=== PATIENT | female | born 1970 | race African-American/Black ===

== ENCOUNTER 2018-02-16 17:27 | Emergency (ER) | payer OTHER ==
[~2018-02-16 17:27] MED LIST: ALBU18HF2 IH
== END 2018-02-16 18:12 | disposition left against medical advice (07) ==
LOC: ER 17:35
DX: Z53.21 Procedure and treatment not carried out due to patient leaving prior to being seen by health care provider (principal)

== ENCOUNTER 2018-02-16 18:57 | Emergency (ER) | payer OTHER ==
[~2018-02-16] VITALS: Ht 167.6 cm; Wt 56.7 kg
[2018-02-16 19:24] VITALS: BP 139/78
== END 2018-02-16 20:15 | disposition home or self-care (01) ==
LOC: ER 19:03
DX: R21 Rash and other nonspecific skin eruption (principal); J45.909 Unspecified asthma, uncomplicated
CPT/HCPCS: 99283; A4606; Z7610

== ENCOUNTER 2018-10-07 21:42 | Emergency (ER) | payer OTHER ==
[~2018-10-07] VITALS: Ht 170.2 cm; Wt 59.0 kg
[2018-10-07 22:15] VITALS: BP 164/88
== END 2018-10-07 22:53 | disposition home or self-care (01) ==
LOC: ER 21:49
DX: J45.909 Unspecified asthma, uncomplicated (principal); I10 Essential (primary) hypertension; F17.200 Nicotine dependence, unspecified, uncomplicated; Z59.0 Homelessness
CPT/HCPCS: 99283; A4606

== ENCOUNTER 2018-12-19 22:18 | Emergency (ER) | payer OTHER ==
[~2018-12-19] VITALS: Ht 170.2 cm; Wt 66.2 kg
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
[2018-12-19] MEDS ORDERED: IBUPROFEN 600 MG TABLET PO ONE ×2 (23:26→23:30)
[2018-12-19] MEDS ORDERED: HYDROCODONE/APAP 5/325MG 1 EACH TABLET ONE (23:26)
[2018-12-19] MEDS ORDERED: HYDROCODONE/APAP 5/325MG 1 EACH TABLET PO ONE (23:30)
--- NOTE | 2018-12-19 23:30 | NUR ---
PT BEING WHELED TO RADIOLOGY Addendum: 12/20/18 at 0027 by LIBORIO PT BEING WHEELED TO RADIOLOGY ON A GURNEY
[2018-12-20 00:30] VITALS: BP 149/80
--- NOTE | 2018-12-20 00:57 | NUR ---
Patient discharged to home in stable condition. Written and verbal after care instructions given. Patient verbalizes understanding of instruction.
--- NOTE | 2018-12-20 01:14 | NUR ---
PT'S LUE WOUND IS CLEANED AND WRAPPED WITH KERLEX. PT AMBULATED OUT WITH A STEADY GAIT.
== END 2018-12-20 00:58 | disposition home or self-care (01) ==
LOC: ER 22:20
DX: S13.8XXA Sprain of joints and ligaments of other parts of neck, initial encounter (principal); S20.212A Contusion of left front wall of thorax, initial encounter; S80.01XA Contusion of right knee, initial encounter; S50.12XA Contusion of left forearm, initial encounter; J45.909 Unspecified asthma, uncomplicated; I10 Essential (primary) hypertension; F17.200 Nicotine dependence, unspecified, uncomplicated; V49.49XA Driver injured in collision with other motor vehicles in traffic accident, initial encounter; Y93.89 Activity, other specified; Y92.410 Unspecified street and highway as the place of occurrence of the external cause; Y99.8 Other external cause status
CPT/HCPCS: 71100-TC; 73090-TC; 73564-TC

== ENCOUNTER 2022-11-16 17:08 | Emergency (ER) | payer OTHER ==
[~2022-11-16] VITALS: Ht 170.2 cm; Wt 100.2 kg
--- NOTE | 2022-11-16 17:08 | NUR ---
BIBS C/O FEELING SOB SINCE YESTERDAY AT 1PM, PT HAS HX OF ASTHMA
[2022-11-16] MEDS ORDERED: ALBUTEROL FS 2.5 MG/3 ML VIAL.NEB NEB ONE (18:30)
[2022-11-16] MEDS ORDERED: IPRATROPIUM NEB FS 0.5 MG/2.5 ML AMPUL.NEB NEB ONE (18:30)
[2022-11-16] MEDS ORDERED: methylPREDNISolone SOD SUCC 125 MG/2ML VIAL IM ONE (18:30)
[2022-11-16] MEDS ORDERED: methylPREDNISolone SOD SUCC 125 MG/2ML VIAL ONE (18:44)
[2022-11-16] MEDS ORDERED: PRED50TA PO (19:32)
--- NOTE | 2022-11-16 19:37 | NUR ---
Patient discharged to home in stable condition. Written and verbal after care instructions given. Patient verbalizes understanding of instruction.
[2022-11-16 19:39] VITALS: BP 115/81
== END 2022-11-16 19:36 | disposition home or self-care (01) ==
LOC: ER 17:10
DX: J06.9 Acute upper respiratory infection, unspecified (principal); I10 Essential (primary) hypertension; J45.909 Unspecified asthma, uncomplicated; F17.200 Nicotine dependence, unspecified, uncomplicated; Z79.899 Other long term (current) drug therapy
CPT/HCPCS: 99283; 96372; J2930